=== PATIENT | female | born 1985 | race Caucasian/White ===

== ENCOUNTER 2016-07-20 20:26 | Observation (INO) ==
[2016-07-20] MEDS ORDERED: 0.9 % Sodium Chloride 1,000 ML IV ONE (20:42)
[2016-07-20] MEDS ORDERED: Ondansetron 4 MG/2 ML VIAL IV STA ×2 (20:42→21:24)
[2016-07-20] MEDS ORDERED: GI Cocktail 40 ML EACH PO ONE (20:43)
--- NOTE | 2016-07-20 20:44 | Emergency Department Note ---
Disposition Clinical Impression: Biliary colic Cholelithiasis Qualifiers: Cholelithiasis location: gallbladder Cholecystitis presence: without cholecystitis Biliary obstruction: without biliary obstruction Qualified Code(s) : K80.20 - Calculus of gallbladder without cholecystitis without obstruction Disposition: Admitted As Inpatient Condition: Good Referrals: Unassigned,Provider [Primary Care Provider] - Forms: Work/School Release, ED Satisfaction Letter Time of Disposition: 22:31 Abdominal Pain HPI - General Chief Complaint: ED Abdominal Pain Stated Complaint: Gallbladder Time Seen by Provider: 07/20/16 20:33 Source: patient Mode of arrival: ambulatory Limitations: no limitations Nursing Notes Reviewed: Yes Vital Signs Reviewed: Yes - History of Present Illness HPI Narrative: 31-year-old female presents with 3 days of intermittent upper abdominal pain along with nausea and vomiting which is worse for the last 8 hours after eating a turkey sandwich at 2 PM. Emesis is nonbloody and nonbilious. Patient has not had a change in bowel movements or urination. No lower abdominal pain. She has no history of abdominal surgery, GERD. She does not abuse tobacco or alcohol. She has not had any chest pain or respiratory symptoms. She was seen at an outside emergency department 3 days ago, had a CT scan that was concerning for possible gallbladder stones. Pt Subjective Complaint: abdominal pain Pain Scale: 10 - Related Data Home Medications Medication Instructions Recorded Confirmed Ibuprofen [Motrin] 400 mg PO Q6HR PRN 07/20/16 07/20/16 Allergies Allergy/AdvReac Type Severity Reaction Status Date / Time Penicillins Allergy Rash Verified 07/20/16 20:30 All systems ED: reviewed and negative except as stated. Abdominal Pain PMH - Past Medical History Medical history: Reports: seizures, other Female Surgical History: Reports: orthopedic, other SNUFF GRINDER history: Reports: no SNUFF GRINDER history Psychiatric history: Reports: no psych history - Social History Smoking status: Never smoker Alcohol use: Reports: rarely Drug use: Reports: none Physical Exam - Head Head exam: atraumatic, normocephalic, normal inspection - Eye Eye exam: Present: normal appearance, PERRL, EOMI - ENT ENT exam: normal exam, normal oropharynx, mucous membranes moist - Neck Neck exam: Present: normal inspection, full ROM, trachea midline - Chest Chest inspection: Present: normal inspection, symmetric chest wall rise - Respiratory Respiratory exam: Clear to auscultation bilaterally without wheezes rales or rhonchi Cardiovascular Cardiovascular exam: Present: regular rate, normal rhythm, normal heart sounds - Abdominal Exam Diffuse upper abdominal tenderness. No lower abdominal tenderness. Abdomen is soft. No rigidity, rebound, or guarding. - Extremities Exam Extremities exam: Present: normal inspection, full ROM - Expanded Lower Extremity Exam Hip/Pelvis exam: Present: normal inspection, full ROM - Back Exam Back exam: Present: normal inspection, full ROM. Absent: tenderness, CVA tenderness (R), CVA tenderness (L) - Neurological Exam Neurological exam: Present: alert, oriented X3, CN II-XII intact - Psychiatric Psychiatric exam: Present: normal affect, normal mood - Skin Skin exam: Present: warm, dry, intact, normal color - General Limitations: no limitations General appearance: alert, in no apparent distress Course - Reevaluation(s) Reevaluation #1: Gallbladder ultrasound shows gallbladder that is full of stones along with come bile duct of 5 mm. Lipase and alkaline phosphatase are normal. AST and nail tear mildly elevated. Bilirubin is normal. White blood cells are 11.6. Patient is still nauseated and has pain despite 8 mg of Zofran and 0.5 mg of Dilaudid. Patient accepted to Dr. Hua service for further evaluation and management. Time: 22:30 Vital Signs Temperature 98.1 F 07/20/16 20:30 Pulse Rate 94 07/20/16 20:30 Respiratory Rate 18 07/20/16 20:30 Blood Pressure 182/114 07/20/16 20:30 O2 Sat by Pulse Oximetry 100 07/20/16 20:30 Temperature 98.1 F 07/20/16 20:30 Pulse Rate 94 07/20/16 20:30 Respiratory Rate 18 07/20/16 20:30 Blood Pressure 182/114 07/20/16 20:30 O2 Sat by Pulse Oximetry 100 07/20/16 20:30 Oxygen Delivery Oxygen Delivery Room Air Abdominal Pain - Lab Data Result diagrams: 07/20/16 21:45 07/20/16 21:45 Lab Results 07/20/16 07/20/16 07/20/16 Range/Units 21:45 21:45 21:45 WBC 11.6 H (4.3-11.1) K/mcL RBC 4.51 (3.82-4.97) M/mcL Hgb 12.8 (11.5-15.4) g/dL Hct 39.3 (35.3-44.9) % MCV 87.1 (83.0-100.0) fL MCH 28.4 (28.0-33.3) pg MCHC 32.6 (31.6-35.5) g/dL RDW 13.2 (11.5-14.5) % Plt Count 383 (140-400) K/mcL MPV 9.7 (9.4-12.4) fL Immature Gran % 0.5 (0-4) % Seg Neutrophils % 78.9 % Lymphocytes % 13.8 % Monocytes % 5.2 % Eosinophils % 1.3 % Basophils % 0.3 % Neutrophils # 9.1 H (1.6-8.9) K/mcL Lymphocytes # 1.6 (0.6-4.6) K/mcL Monocytes # 0.6 (0.0-1.3) K/mcL Eosinophils # 0.2 (0.0-0.6) K/mcL Basophils # 0.0 (0.0-0.2) K/mcL Immature Plt Fraction 3.1 (1.1-6.1) % Sodium 138 (136-145) mEq/L Potassium 4.1 (3.5-4.5) mEq/L Chloride 102 (98-109) mEq/L Carbon Dioxide 24 (19-29) mEq/L BUN 14 (7-20) mg/dL Creatinine 0.81 (0.57-1.11) mg/dL Est GFR ( Amer) > 60 (> 60) Est GFR (Non-Af Amer) > 60 (> 60) BUN/Creatinine Ratio 17 (6-26) Glucose 106 H (70-99) mg/dL Calculated Osmolality 287 (280-300) Calcium 9.7 (8.6-10.8) mg/dL Total Bilirubin 0.6 (0.2-1.2) mg/dL Direct Bilirubin 0.3 (0.0-0.5) mg/dL Indirect Bilirubin 0.3 (0.0-1.2) mg/dL AST 179 H (5-34) Units/L ALT 71 H (0-55) Units/L Alkaline Phosphatase 109 (38-126) Units/L Serum Total Protein 8.6 H (6.0-8.3) g/dL Albumin 3.9 (3.5-5.0) g/dL Globulin 4.7 H (2.4-3.5) g/dL Albumin/Globulin Ratio 0.8 L (1.1-2.2) Lipase 12 (8-78) Units/L Serum , Qual Negative (Negative) Attestation Statement - Attestation Attestation: I examined this patient and my medical decision-making was reviewed with the RACKER OCTAVE BOARD/PA/Advanced Practice Nurse/Resident Physician. I agree with the documented findings, disposition and treatment plan as described except to the extent set forth below.
[2016-07-20] MEDS ORDERED: *HR* HYDROmorphone (PF) 1 MG/ML SYRINGE IV ONE ×2 (21:24→22:25)
[2016-07-20 22:01] LABS: Basophils % 0.3 %; Eosinophils # 0.2 K/mcL (0.0-0.6); Eosinophils % 1.3 %; Hematocrit 39.3 % (35.3-44.9); Hemoglobin 12.8 g/dL (11.5-15.4); Immature Granulocytes % 0.5 % (0-4); Immature Platelets 3.1 % (1.1-6.1); Lymphocytes # 1.6 K/mcL (0.6-4.6); Lymphocytes % 13.8 %; Mean Corpuscular HGB Conc 32.6 g/dL (31.6-35.5); Mean Corpuscular Hemoglobin 28.4 pg (28.0-33.3); Mean Corpuscular Volume 87.1 fL (83.0-100.0); Mean Platelet Volume 9.7 fL (9.4-12.4); Monocytes # 0.6 K/mcL (0.0-1.3); Monocytes % 5.2 %; Neutrophils # 9.1 K/mcL (1.6-8.9); Platelet Count 383 K/mcL (140-400); Red Blood Count 4.51 M/mcL (3.82-4.97); Red Cell Distribution Width 13.2 % (11.5-14.5); Segmented Neutrophils % 78.9 %
[2016-07-20 22:17] LABS: Alanine Aminotransferase 71 Units/L (0-55); Albumin 3.9 g/dL (3.5-5.0); Albumin/Globulin Ratio 0.8 (1.1-2.2); Alkaline Phosphatase 109 Units/L (38-126); Aspartate Amino Transferase 179 Units/L (5-34); BUN/Creatinine Ratio 17 (6-26); Bilirubin,Direct 0.3 mg/dL (0.0-0.5); Bilirubin,Indirect 0.3 mg/dL (0.0-1.2); Bilirubin,Total 0.6 mg/dL (0.2-1.2); Blood Urea Nitrogen 14 mg/dL (7-20); Calcium 9.7 mg/dL (8.6-10.8); Carbon Dioxide 24 mEq/L (19-29); Chloride 102 mEq/L (98-109); Globulin 4.7 g/dL (2.4-3.5); Glucose 106 mg/dL (70-99); Lipase 12 Units/L (8-78); Osmolality,Calculated 287 (280-300); Potassium 4.1 mEq/L (3.5-4.5); Sodium 138 mEq/L (136-145); Total Protein 8.6 g/dL (6.0-8.3); eGFR For African Americans > 60 (> 60); eGFR For Non-African Americans > 60 (> 60)
[2016-07-21] MEDS: *HR* HYDROmorphone (PF) 1 MG/ML SYRINGE IVP PRN ×8 (00:33→23:58)
[2016-07-21] MEDS: 0.9 % Sodium Chloride 1,000 ML IVC SCH ×2 (04:46→12:59)
[2016-07-21] MEDS: Ondansetron 4 MG/2 ML VIAL IVP PRN ×3 (04:47→21:52)
[2016-07-21 04:50] LABS: Basophils % 0.1 %; Eosinophils % 0.5 %; Hematocrit 36.9 % (35.3-44.9); Hemoglobin 11.7 g/dL (11.5-15.4); Immature Granulocytes % 0.4 % (0-4); Lymphocytes # 0.8 K/mcL (0.6-4.6); Lymphocytes % 9.9 %; Mean Corpuscular HGB Conc 31.7 g/dL (31.6-35.5); Mean Corpuscular Hemoglobin 27.8 pg (28.0-33.3); Mean Corpuscular Volume 87.6 fL (83.0-100.0); Mean Platelet Volume 9.9 fL (9.4-12.4); Monocytes # 0.4 K/mcL (0.0-1.3); Monocytes % 4.7 %; Neutrophils # 6.8 K/mcL (1.6-8.9); Platelet Count 306 K/mcL (140-400); Red Blood Count 4.21 M/mcL (3.82-4.97); Red Cell Distribution Width 13.3 % (11.5-14.5); Segmented Neutrophils % 84.4 %
[2016-07-21 05:06] LABS: Alanine Aminotransferase 490 Units/L (0-55); Albumin 3.4 g/dL (3.5-5.0); Albumin/Globulin Ratio 0.8 (1.1-2.2); Alkaline Phosphatase 148 Units/L (38-126); Aspartate Amino Transferase 1131 Units/L (5-34); BUN/Creatinine Ratio 14 (6-26); Bilirubin,Direct 0.8 mg/dL (0.0-0.5); Bilirubin,Indirect 0.5 mg/dL (0.0-1.2); Blood Urea Nitrogen 10 mg/dL (7-20); Calcium 8.7 mg/dL (8.6-10.8); Carbon Dioxide 24 mEq/L (19-29); Chloride 103 mEq/L (98-109); Globulin 4.2 g/dL (2.4-3.5); Glucose 97 mg/dL (70-99); Osmolality,Calculated 285 (280-300); Potassium 3.9 mEq/L (3.5-4.5); Sodium 138 mEq/L (136-145); Total Protein 7.6 g/dL (6.0-8.3); eGFR For African Americans > 60 (> 60); eGFR For Non-African Americans > 60 (> 60)
[2016-07-21 05:07] LABS: Bilirubin,Total 1.3 mg/dL (0.2-1.2)
[2016-07-21] MEDS ORDERED: *HR* Heparin 5,000 UNIT/ML VIAL SQ SCH (06:00)
[2016-07-21] MEDS ORDERED: Pantoprazole 40 MG VIAL IVP SCH (09:00)
--- NOTE | 2016-07-21 10:20 | General Surg History&Physical ---
Date of Encounter: 07/21/16 Time of Encounter: 07:30 Assessment and Plan (1) Biliary colic Status: Resolved The assessment and plan as outlined above was discussed with the patient and/or family members who expressed understanding and agreement. All questions were answered. I explained to the patient that it does appear that she has symptoms consistent with biliary colic. I think that it would be reasonable to consider a laparoscopic cholecystectomy while she is inpatient in the hospital. Her pain is currently a 6 out of 10 and has remained relatively unchanged since her admission. Will ask my colleague to see if he will be able to perform the surgical procedure later on this afternoon. Risks and benefits have been discussed with the patient and she agrees to the above plan. History of Present Illness Chief complaint: Epigastric abdominal pain HPI: Ms. Abdi is a 31 year old female with no significant past medical history who presents to [facility] with a 5 day history of epigastric abdominal pain radiating to the right upper quadrant. She states the pain is a sharp stabbing pain and was intermittent but progressively becoming more persistent. She admitted to nausea and vomiting as the days wore on and denies any diarrhea or constipation. He denies any heartburn symptoms and states that she has a bowel movement once per day without rectal bleeding. She presented to the emergency room and examination was suggestive of biliary colic symptoms. Of note the patient did admit to having a turkey sandwich and then a couple hours later having the worsening epigastric to right upper quadrant abdominal pain prior to her presentation to the emergency room. Past Med Surg Social Fam HX - Past Medical History Medical history: seizures, other Psychiatric history: no psych history - Past Surgical History Surgical History: no surgical history - Social History Smoking Status: Never smoker Smokeless Tobacco Status: No Alcohol use: rarely Drug use: none Medications and Allergies Ibuprofen [Motrin] 400 mg PO Q6HR PRN 07/20/16 [History] Docusate [Colace] 100 mg PO BID #30 capsule 07/21/16 [Rx] OxyCODONE/APAP 5/325 [Percocet 5/325 MG] 1 each PO Q6HR PRN #30 tablet 07/21/16 [Rx] Allergies Penicillins Allergy (Verified 07/20/16 20:30) Rash Review of Systems All systems PM: reviewed and no additional remarkable complaints except as stated All systems PM: A 10-system review of systems was performed and is negative for pertinent findings except as documented above in the HPI. General Surgery Exam Initial Vital Signs Temp Pulse Resp BP Pulse Ox 98.1 F 94 18 182/114 100 07/20/16 20:30 07/20/16 20:30 07/20/16 20:30 07/20/16 20:30 07/20/16 20:30 - General physical appearance well developed, well nourished, no distress - Eyes PERRL, normal ocular movement - Neck no masses, trachea midline, no lymphadectomy - Respiratory normal expansion, normal respiratory effort, clear to auscultation - Cardiovascular Cardiovascular exam: Present: RRR, no murmurs/rubs/gallops - Abdomen Abdomen general surgery: Present: bowel sounds present, soft, tender (noted in the epigastrum and RUQ. No masses) - Integumentary Integumentary general surgery: Present: warm and dry - Neurologic Present: CN 2-12 grossly intact - Musculoskeletal Present: other (No clubbing, cyanosis, or edema) - Psychiatric Psychiatric general surgery: Present: A&Ox3 Results - Labs 07/21/16 03:47 07/21/16 03:47 Abnormal lab results MCH 27.8 pg (28.0-33.3) L 07/21/16 03:47 Total Bilirubin 1.3 mg/dL (0.2-1.2) H D 07/21/16 03:47 Direct Bilirubin 0.8 mg/dL (0.0-0.5) H 07/21/16 03:47 AST 1131 Units/L (5-34) H 07/21/16 03:47 ALT 490 Units/L (0-55) H 07/21/16 03:47 Alkaline Phosphatase 148 Units/L (38-126) H 07/21/16 03:47 Albumin 3.4 g/dL (3.5-5.0) L 07/21/16 03:47 Globulin 4.2 g/dL (2.4-3.5) H 07/21/16 03:47 Albumin/Globulin Ratio 0.8 (1.1-2.2) L 07/21/16 03:47 Diabetes panel 07/21/16 Range/Units 03:47 Sodium 138 (136-145) mEq/L Potassium 3.9 (3.5-4.5) mEq/L Chloride 103 (98-109) mEq/L Carbon Dioxide 24 (19-29) mEq/L BUN 10 (7-20) mg/dL Creatinine 0.70 (0.57-1.11) mg/dL Glucose 97 (70-99) mg/dL Calcium 8.7 (8.6-10.8) mg/dL AST 1131 H (5-34) Units/L ALT 490 H (0-55) Units/L Alkaline Phosphatase 148 H (38-126) Units/L Albumin 3.4 L (3.5-5.0) g/dL Calcium panel 07/21/16 Range/Units 03:47 Calcium 8.7 (8.6-10.8) mg/dL Albumin 3.4 L (3.5-5.0) g/dL Pituitary panel 07/21/16 Range/Units 03:47 Sodium 138 (136-145) mEq/L Potassium 3.9 (3.5-4.5) mEq/L Chloride 103 (98-109) mEq/L Carbon Dioxide 24 (19-29) mEq/L BUN 10 (7-20) mg/dL Creatinine 0.70 (0.57-1.11) mg/dL Glucose 97 (70-99) mg/dL Calcium 8.7 (8.6-10.8) mg/dL Adrenal panel 07/21/16 Range/Units 03:47 Sodium 138 (136-145) mEq/L Potassium 3.9 (3.5-4.5) mEq/L Chloride 103 (98-109) mEq/L Carbon Dioxide 24 (19-29) mEq/L BUN 10 (7-20) mg/dL Creatinine 0.70 (0.57-1.11) mg/dL Glucose 97 (70-99) mg/dL Calcium 8.7 (8.6-10.8) mg/dL Total Bilirubin 1.3 H D (0.2-1.2) mg/dL AST 1131 H (5-34) Units/L ALT 490 H (0-55) Units/L Alkaline Phosphatase 148 H (38-126) Units/L Albumin 3.4 L (3.5-5.0) g/dL All other labs normal. - Imaging CT scan - chest: report reviewed, image reviewed (Cellulitis CT scan imaging report from 07/17/2016. Suggestion of gallbladder sludge and stones but no other acute findings identified.) US - abdomen: report reviewed, image reviewed (Reviewed the images and report personally. Evidence of gallstones without gallbladder wall thickening or pericholecystic fluid. Common bile duct appears normal in size.)
--- NOTE | 2016-07-21 15:03 | Anesthesia Evaluation PreOp ---
Date of Encounter: 07/21/16 Time of Encounter: 15:00 - Past History Planned Operation: Lap Cholecystectomy Cardiac History: Denies any Significant Hx Pulmonary History: Denies Any Significant HX AURIST History: Seizures (remote history age 18-25) Other Medical History: Other (Morbid Obesity) Anesthesia History: No Prior Anesthetic Complications : No Test: Negative Alcohol Use: rarely Drug use: none Medications and Allergies Ibuprofen [Motrin] 400 mg PO Q6HR PRN 07/20/16 [History] Allergies Penicillins Allergy (Verified 07/20/16 20:30) Rash - Meds/Allergy Pre-op Review Medications Reviewed: Yes Allergies Reviewed: Yes Beta Blockers on Current Med List: No Anesthesia Results - Labs 07/21/16 03:47 07/21/16 03:47 Laboratory Tests 07/20/16 21:45 Serum , Qual Negative Anesthesia Exam O2 Sat Height 1.63 m Weight 127.641 kg Weight 125.191 kg O2 Sat by Pulse Oximetry 98 O2 Sat by Pulse Oximetry 96 O2 Sat by Pulse Oximetry 99 O2 Sat by Pulse Oximetry 97 O2 Sat by Pulse Oximetry 98 O2 Sat by Pulse Oximetry 100 Vital Signs Temp Pulse Resp BP Pulse Ox 98.1 F 94 18 182/114 100 07/20/16 20:30 07/20/16 20:30 07/20/16 20:30 07/20/16 20:30 07/20/16 20:30 Height: 5'4 Weight: 281 lbs NPO (# of Hours): MN Pain Scale: 0 - HEENT Pupil (Motor): Pupils equal, EOMI Mallampati: II Teeth: Normal Oral Opening: Greater than 3 - AURIST LOC: Oriented AURIST Motor: Normal RUE, Normal LUE, Normal RLE, Normal LLE, Normal Face AURIST Sensory: Normal: RUE, LUE, RLE, LLE, Face - Cardiac Rhythm: Regular Murmur: None JVD: No Carotid Bruit: No - Pulmonary Breath Sounds: bilateral Clear Respiratory Effort: Symmetrical Anesthesia Assess/Plan ASA Score: 3 (MO) Anesthetic Plan: General Monitoring Plan: Standard Monitors Recovery Plan: PACU (Discussed GA, agrees to proceed)
[2016-07-21] MEDS ORDERED: Bupivacaine/Clonidine Syringe 1 EACH SYRINGE ONE (15:07)
[2016-07-21] MEDS ORDERED: *HR* Midazolam HCl 5 MG/5 ML VIAL IVP ONE (15:10)
[2016-07-21] MEDS ORDERED: *HR* FentaNYL (PF) 100 MCG/2 ML VIAL ONE (15:10)
--- NOTE | 2016-07-21 15:30 | Anesthesia Procedures ---
Date of Encounter: 07/21/16 Time of Encounter: 15:29 Procedures: Anesthesia - Nerve Block Procedure Date: 07/21/16 Time: 15:29 Allergies/Adv Reactions: pcn Surgical Procedure: l/s donell Checklist: Correct Patient Identifier, Correct procedure, History checked Blood Thinner: No Monitor Applied: EKG, BP, Pulse Oximetry Supplemental Oxygen via Nasal Cannula (L/min): 2 Sedation: Versed (mg): 5 Sedation: Fentanyl (mcg): 50 Indication: Post Op Analgesia Pre-op Neuro Deficits: No Block Type: Other (bilateral QL1 block) Catheter placed: No Sterile Technique: Yes Ultrasound used: Yes Anatomy identified: Yes Visual spread of Local: Yes Neuro Stimulation: No Blood on Needle Aspiration: No Smooth Injection of Local: Yes Pain with Injection of Local: No Prep: Chlorhexadine Needle: 21 x 100 mm Stimuplex Local: 0.25% Bupivicaine w/Clonidine 20 mcg/cc Volume (cc): 60 Number of Attempts: 1 Complications: None/effective block Vitals: spo2 96%, hr 108, BP 129/84, rr 16
[2016-07-21] MEDS ORDERED: *HR* Propofol 200 MG/20 ML VIAL IVP ONE ×2 (15:37→16:31)
[2016-07-21] MEDS ORDERED: *HR* Rocuronium Bromide 50 MG/5 ML VIAL ONE (15:37)
[2016-07-21] MEDS ORDERED: Lidocaine -MPF 4% 5 ML AMPUL ONE (15:37)
[2016-07-21] MEDS ORDERED: Ketamine *HR* 500 MG/10 ML MDV ONE (15:38)
[2016-07-21] MEDS ORDERED: Esmolol 100 MG/10 ML VIAL IVP ONE (15:40)
[2016-07-21] MEDS ORDERED: Ondansetron 4 MG/2 ML VIAL ONE (15:42)
[2016-07-21] MEDS ORDERED: Lidocaine -MPF 2% 2 ML VIAL ONE (15:42)
[2016-07-21] MEDS ORDERED: Dexamethasone 4 MG/ML VIAL ONE (16:19)
--- NOTE | 2016-07-21 16:30 | Discharge Summary ---
<Aixa Oswald - Last Filed: 07/21/16 16:27> Date of Encounter: 07/21/16 Time of Encounter: 16:27 - Discharge Diagnosis (1) Biliary colic Priority: Primary Status: Resolved - Discharge Medications Prescriptions: OxyCODONE/APAP 5/325 [Percocet 5/325 MG] 1 each PO Q6HR PRN #30 tablet PRN Reason: Pain Docusate [Colace] 100 mg PO BID #30 capsule Home Medications: Ibuprofen [Motrin] 400 mg PO Q6HR PRN 07/20/16 [History] Docusate [Colace] 100 mg PO BID #30 capsule 07/21/16 [Rx] OxyCODONE/APAP 5/325 [Percocet 5/325 MG] 1 each PO Q6HR PRN #30 tablet 07/21/16 [Rx] Allergies/Adverse Reactions: Allergies Penicillins Allergy (Verified 07/20/16 20:30) Rash General Surgery Exam Initial Vital Signs Temp Pulse Resp BP Pulse Ox 98.1 F 94 18 182/114 100 07/20/16 20:30 07/20/16 20:30 07/20/16 20:30 07/20/16 20:30 07/20/16 20:30 Date of admission: 07/20/16 22:57 Primary care physician: PCP ELLY Discharging clinician: Cabrera Oswald) - Patient Status Disposition: Home, Self-Care Condition: Good Functional capacity at discharge: independent ambulation Overall status at discharge: patient is progressing back to baseline - Discharge Instructions Instructions: Oxycodone/Acetaminophen (By mouth), Laxative, Stool Softeners ( By mouth), Gallstones (DC), Laparoscopic Cholecystectomy (DC) Follow Up With: ELLYPCP [Primary Care Provider] - Aixa Oswald MOLDING PROCESS TECHNICIAN [Advanced Practice Nurse] - 07/31/16 8:45 am (surgery follow-up) Forms: Inpatient Work/School Release Additional Instructions: Discharge instructions: #1 May shower 07/22/16, no tub bath X 2 weeks #2 Wash incisions with soap and water and pat dry daily #3 No lifting/pushing/pulling greater than 15 lb. X 2 weeks #4 No driving until off narcotics for 24 hours and able to safely react in the car #5 May climb stairs - Diet and Activity Activity: increase activity as tolerated Diet: advance to your usual diet - Hospital Course Hospital course: Ms. Abdi is a 31 year old female presented to the hospital with symptoms of biliary colic. She was taken to the operating room for a laparoscopic cholecystectomy with Dr. Kaba. Will begin discharge planning to home when tolerating liquids without nausea/vomiting, vitals are stable and afebrile, pain well controlled, ambulating and voiding without difficulty. Plan for outpatient follow-up in the next 10-14 days. - Time Spent with Patient Total time spent providing and/or coordinating discharge services: Less than 30 minutes Labs on day of discharge: Labs from last 24 hours 07/21/16 07/21/16 03:47 03:47 WBC 8.1 RBC 4.21 Hgb 11.7 Hct 36.9 MCV 87.6 MCH 27.8 L MCHC 31.7 RDW 13.3 Plt Count 306 MPV 9.9 Immature Gran % 0.4 Seg Neutrophils % 84.4 Lymphocytes % 9.9 Monocytes % 4.7 Eosinophils % 0.5 Basophils % 0.1 Neutrophils # 6.8 Lymphocytes # 0.8 Monocytes # 0.4 Eosinophils # 0.0 Basophils # 0.0 Sodium 138 Potassium 3.9 Chloride 103 Carbon Dioxide 24 BUN 10 Creatinine 0.70 Est GFR ( Amer) > 60 Est GFR (Non-Af Amer) > 60 BUN/Creatinine Ratio 14 Glucose 97 Calculated Osmolality 285 Calcium 8.7 Total Bilirubin 1.3 H D Direct Bilirubin 0.8 H Indirect Bilirubin 0.5 AST 1131 H ALT 490 H Alkaline Phosphatase 148 H Serum Total Protein 7.6 Albumin 3.4 L Globulin 4.2 H Albumin/Globulin Ratio 0.8 L - Attending Attestation I examined this patient and my medical decision-making was reviewed with the ADMINISTRATIVE SERVICES OFFICER/PA/Advanced Practice Nurse/Resident Physician. I agree with the documented findings, disposition and treatment plan as described except to the extent set forth below. <Jose De Jesus Conklin - Last Filed: 07/22/16 16:01> Date of Encounter: 07/22/16 Time of Encounter: 02:00 - Discharge Diagnosis (1) Cholelithiasis Priority: Primary Status: Acute Qualifiers: Cholelithiasis location: gallbladder Cholecystitis presence: without cholecystitis Biliary obstruction: without biliary obstruction Qualified Code(s): K80.20 - Calculus of gallbladder without cholecystitis without obstruction General Surgery Exam Initial Vital Signs Temp Pulse Resp BP Pulse Ox 98.1 F 94 18 182/114 100 07/20/16 20:30 07/20/16 20:30 07/20/16 20:30 07/20/16 20:30 07/20/16 20:30 - Respiratory normal respiratory effort, clear to auscultation - Cardiovascular Cardiovascular exam: Present: RRR, no murmurs/rubs/gallops - Abdomen Abdomen general surgery: Present: bowel sounds present, soft, tender (expected postoperative tenderness) Date of admission: 07/20/16 22:57 Primary care physician: PCP NO Anticipated date of discharge: 07/22/16 - Patient Status Functional capacity at discharge: independent ambulation Overall status at discharge: patient is progressing back to baseline - Diet and Activity Activity: increase activity as tolerated Diet: advance to your usual diet - Hospital Course Hospital course: Ms. Abdi is a 31 year old female who continued to progress on 07/22. She was able to tolerate a regular diet without any nausea or vomiting. She was able to ambulate and did complain of some soreness, but expressed a willingness to go home. She had return of bowel function and was able to void without difficulty. All questions were answered and the patient was agreeable to the plan of care. - Time Spent with Patient Total time spent providing and/or coordinating discharge services: - Impressions ITS Impressions Cholangiogram,Operative 07/21/16 00:00 IMPRESSION: Unremarkable intraoperative cholangiogram. D/ / 07/21/2016 16:36:41 Seb Avendaño MD / melodie Interpreting Provider: Seb Avendaño MD
[2016-07-21] MEDS ORDERED: Ketorolac 30 MG/ML VIAL ONE (16:31)
[2016-07-21] MEDS ORDERED: Acetaminophen IV 1,000 MG/100 ML INFUS..BTL ONE (16:32)
[2016-07-21] MEDS ORDERED: Neostigmine Methylsulfate 3 MG/3 ML SYRINGE ONE (16:36)
--- NOTE | 2016-07-21 16:44 | Operative Note ---
Date of procedure: 07/21/16 Pre-op diagnosis: Symptomatic cholelithiasis Post-op diagnosis: same Procedure: Laparoscopic cholecystectomy with cholangiogram Anesthesia: OSMAR Surgeon: Cabrera Kaba Estimated blood loss (cc): 5 Specimen: gb Condition: stable Disposition: same day Procedure in Detail: After informed consent this patient was taken the operating room placed supine position. After adequate sedation anesthesia the abdomen was prepped and draped. A proper timeout was performed. Two towel clamps are placed at the umbilicus and a Veres needle was inserted into the abdomen. A 5 mm incision was made at the umbilicus. A 12 mm incision was made in the subxiphoid region. Two 5 mm incisions were made in the right upper quadrant that were 4 finger breadths and 6 finger breadths below the costal margin. The gallbladder was identified, retracted anteriorly and cephalad, and the infundibulum was skeletonized. The cystic duct was easily identified and was dissected free. A ductotomy was created in the cystic duct. A taut catheter was placed within the cystic duct and clipped. A cholangiogram was performed. Contrast filled the cystic duct, common hepatic duct, hepatic radicles, and the distal common bile duct. There was flow of contrast into the duodenum. Once this was confirmed the clippers removed, the taut catheter was removed as well, and the cystic duct was clipped distally. The cystic duct was then transected with scissors. The gallbladder was resected off the liver surface. There was excellent hemostasis. The gallbladder was then retrieved through the 12 mm cannula site. At this point the abdomen was suctioned dry and the pneumoperitoneum was then evacuated. All ports were removed. The 12 mm cannula site was closed with an 0 Vicryl suture in [id number] fashion. The skin was closed with 4-0 Vicryl suture. Dermabond was placed as well. All instrument counts and needle counts are correct in the operation. She tolerated the procedure well and was transferred to the PACU in stable condition.
[2016-07-21] MEDS ORDERED: *HR* HYDROmorphone (PF) 1 MG/ML SYRINGE IVP PRN (17:05)
[2016-07-21] MEDS ORDERED: *HR* Promethazine 25 MG/ML VIAL IVP PRN (17:05)
--- NOTE | 2016-07-21 17:23 | Anesthesia Evaluation Post Op ---
Date of Encounter: 07/21/16 Time of Encounter: 17:30 - Vital Signs Vital Signs: Vital Signs/O2 Sat/Glucose, Most Current Temp Pulse Resp BP Pulse Ox 07/21/16 17:11 96 16 119/78 96 07/21/16 17:01 97 16 119/67 98 07/21/16 16:51 98.2 F 102 16 122/82 96 - Lungs Lungs: Clear Ascult./Percussion - Airway Airway: Non-obstructed - Cardiovascular Regular Rate - Mental Status Mental Status: Alert & Oriented, Answers Appropriately - Pain Pain Scale: 0 - Nausea Vomiting Nausea Vomiting: Not Present - Hydration Hydration: NPO - Discharge PostOp Status: Transfer Patient to floor
[2016-07-22] MEDS: 0.9 % Sodium Chloride 1,000 ML IVC SCH ×3 (00:41→01:00)
[2016-07-22] MEDS: *HR* HYDROmorphone (PF) 1 MG/ML SYRINGE IVP PRN ×3 (04:24→11:28)
[2016-07-22] MEDS: Ondansetron 4 MG/2 ML VIAL IVP PRN ×2 (04:28→08:18)
[2016-07-22] MEDS ORDERED: *HR* Heparin 5,000 UNIT/ML VIAL SQ SCH (06:00)
[2016-07-22] MEDS ORDERED: Pantoprazole 40 MG VIAL IVP SCH (09:00)
[2016-07-22 10:27] VITALS: BP 158/89
== END 2016-07-22 15:01 | disposition home or self-care (01) ==
LOC: EMEROO 20:26 → 3BNU 20:26
PROVIDERS: ADMIT Nurse Practitioner Family; ATTEND Surgery